=== PATIENT | male | born 1975 | race Caucasian/White ===

== ENCOUNTER → 2017-09-04 | Outpatient (CLI) | payer OTHER ==
[~2017-09-04] MED LIST: IOTHALAMATE MEGLUMINE 17.20% 250 ML BTL ONE
--- NOTE | 2017-09-04 13:52 | Diagnostic Imaging Report ---
PROCEDURE:VOIDING CYSTOURETHROGAM TECHNIQUE:250 mL Cysto-Conray was infused via indwelling Aburto catheter by gravity. INDICATION:Bladder surgery. COMPARISON:None. FINDINGS: Frame Table Operator Helper images shows midline pelvic skin kimberly. During the initial infusion, there was little contrast passing to the bladder, likely from a clogged Aburto catheter. Subsequent infusion of saline and aspiration, the Aburto catheter was cleaned and ready. Contrast was infused via the indwelling Aburto catheter. Patient was able to void around the Aburto catheter. No leak was identified. Fluoroscopy time: 0.8 minutes. Air Kerma: 53.08 mGy CONCLUSION: 1. No leak identified. 2. Aburto catheter was removed. Dictated by: Dio Saucedo M.D. on 09/04/2017 at 13:52 Electronically approved by: Dio Saucedo M.D. on 09/04/2017 at 13:52
== END ==
LOC: DX 11:51
PROVIDERS: ATTEND Urology
DX: N32.89 Other specified disorders of bladder (principal)
CPT/HCPCS: 74455; Q9958